=== PATIENT | female | born 1965 | race Caucasian/White ===

== ENCOUNTER 2021-10-19 08:37 | Emergency (ER) | payer MEDICAID, SELFPAY ==
[2021-10-19 08:41] VITALS: BP 108/69; PULSE 87; RESP 20; TEMP 37.1; O2SAT 97; BMI 26.2
--- NOTE | 2021-10-19 08:58 | EKG12_ITS ---
Test Reason : SUBSTANCE ABUSE Blood Pressure : / mmHG Vent. Rate : 078 BPM Atrial Rate : 078 BPM P-R Int : 150 ms QRS Dur : 076 ms QT Int : 368 ms P-R-T Axes : 074 072 076 degrees QTc Int : 419 ms Normal sinus rhythm Biatrial enlargement Abnormal ECG Confirmed by JAKOB PABLO, VERO ([id number]), legal editor MURIEL NAGY ([id number]) on 10/24/2021 9:31:25 AM Referred By: RM Confirmed By:VERO ROBERT MD
--- NOTE | 2021-10-19 09:01 | EX.ED.DYSGE1 ---
HPI History of Present Illness Chief Complaint: Substance Abuse Informant: patient Onset/Context/Timing Onset: Days Context: Gradual Onset Current Severity: Moderate Maximum Severity: Moderate Narrative Narrative: Patient presents secondary to withdrawal from cocaine and gabapentin. She is currently at [facility]. She had been using cocaine and gabapentin daily for the last 6 months. She was sent to the emergency room from [facility] for inpatient treatment. [facility] Medical History Anxiety Depression Substance abuse Home Medications aripiprazole 10 mg PO DAILY 10/19/21 [History Last Taken Unknown] fluoxetine [Prozac] 20 mg PO DAILY 10/19/21 [History Last Taken Unknown] hydroxyzine pamoate 25 mg PO TID PRN PRN 10/19/21 [History Last Taken Unknown] methocarbamol [Robaxin] 750 mg PO QHS 10/19/21 [History Last Taken Unknown] topiramate 25 mg PO BID 10/19/21 [History Last Taken Unknown] Allergy/AdvReac Type Severity Reaction Status Date / Time No Known Allergies Allergy Verified 10/19/21 08:49 Surgical History History of hysterectomy Social History Smoking Status: Current every day smoker tobacco type: cigarettes ROS ROS ED Constitutional Constitutional ED: Reports chills Eyes Eyes: Denies blurry vision or change in vision ENT ENT ED: Denies rhinorrhea or sore throat Cardiovascular Cardiovascular: Denies chest pain Respiratory/Chest Respiratory/Chest: Denies cough or dyspnea Gastrointestinal Gastrointestinal: Reports nausea Genitourinary Genitourinary ED: Denies dysuria Musculoskeletal Musculoskeletal: Reports myalgias Integumentary Denies rash Neurologic Neurologic: Reports headache(s) and weakness Psychiatric Psychiatric: Reports anxiety Endocrine Endocrinology: Denies polydipsia or polyuria Allergic/Immunologic Allergic/Immunologic ED: Denies urticaria EXAM Physical Exam Const Vital Signs: 10/19/21 08:41 10/19/21 09:41 10/19/21 10:21 Temperature 98.8 F Temperature Source Oral Pulse Rate 87 76 88 Respiratory Rate 20 H 16 25 H Blood Pressure 108/69 115/76 Blood Pressure Mean 82 89 Pulse Ox 97 98 98 Oxygen Delivery Method Room Air Room Air Room Air Positive well nourished and well developed General Appearance ED: well developed HEENT Reports moist mucous membranes Eyes PERRL and EOMs intact bilaterally Neck supple Chest Wall inspection of chest normal and palpation of chest normal Resp normal respiratory effort and clear to auscultation bilaterally Cardio regular rate and regular rhythm GI non-tender Palpation: soft Extremity normal to inspection Neuro oriented x3 Sensorium / Orientation: alert Psych mental status grossly normal MDM MDM MDM Narrative Medical decision making narrative: Patient placed on cell tender helper. EKG and labs obtained. Patient given 0.5 mg of IV Ativan. Lab Data Attestation: I reviewed the patient's lab results. Labs: Laboratory Results - last 24 hr 10/19/21 10/19/21 10/19/21 09:35 09:35 09:35 WBC 4.8 RBC 4.80 Hgb 15.4 H Hct 44.1 MCV 91.9 MCH 32.1 H MCHC 34.9 RDW Std Deviation 43.6 RDW Coeff of Seven 12.9 Plt Count 241 MPV 10.3 Immature Gran % (Auto) 0.200 Neut % (Auto) 77.5 H Lymph % (Auto) 12.2 L [place] % (Auto) 9.5 Eos % (Auto) 0.2 Baso % (Auto) 0.4 Absolute Neuts (auto) 3.8 Absolute Lymphs (auto) 0.59 L Nucleated RBC % 0 Differential Comment Platelet Estimate ADEQUATE RBC Morphology NORM C+C Sodium 138 Potassium 4.0 Chloride 108 H Carbon Dioxide 26.0 Anion Gap 4 L BUN 16 Creatinine 0.93 Estim Creat Clear Calc 60.06 Est GFR (MDRD) Af Amer 80 Est GFR (MDRD) Non-Af 66 BUN/Creatinine Ratio 17.3 Glucose 104 Calcium 8.7 Total Bilirubin 0.20 Direct Bilirubin 0.07 AST 14 L ALT 23 Alkaline Phosphatase 78 Total Protein 7.5 Albumin 3.2 Globulin 4.3 H Urine Opiates Screen Urine Methadone Screen Ur Barbiturates Screen Ur Phencyclidine Scrn Ur Amphetamines Screen U Methamphetamin-MDMA U Benzodiazepines Scrn Urine Cocaine Screen U Cannabinoids Screen Ur Drug Screen Comment Ethyl Alcohol < 3.0 10/19/21 09:35 WBC RBC Hgb Hct MCV MCH MCHC RDW Std Deviation RDW Coeff of Seven Plt Count MPV Immature Gran % (Auto) Neut % (Auto) Lymph % (Auto) [place] % (Auto) Eos % (Auto) Baso % (Auto) Absolute Neuts (auto) Absolute Lymphs (auto) Nucleated RBC % Differential Comment Platelet Estimate RBC Morphology Sodium Potassium Chloride Carbon Dioxide Anion Gap BUN Creatinine Estim Creat Clear Calc Est GFR (MDRD) Af Amer Est GFR (MDRD) Non-Af BUN/Creatinine Ratio Glucose Calcium Total Bilirubin Direct Bilirubin AST ALT Alkaline Phosphatase Total Protein Albumin Globulin Urine Opiates Screen NEGATIVE Urine Methadone Screen NEGATIVE Ur Barbiturates Screen NEGATIVE Ur Phencyclidine Scrn NEGATIVE Ur Amphetamines Screen NEGATIVE U Methamphetamin-MDMA NEGATIVE U Benzodiazepines Scrn NEGATIVE Urine Cocaine Screen POSITIVE H U Cannabinoids Screen NEGATIVE Ur Drug Screen Comment Ethyl Alcohol EKG Initial EKG: Attestation: I personally reviewed and interpreted this EKG as follows: Interpretation: Sinus Rhythm (Sinus at 78 with no acute ischemia.) Treatment and Re-Evaluation Comments:: On repeat evaluation patient resting comfortably. I spoke with social work. They made phone calls to [facility]. Apparently there was a misunderstanding as [facility] says they can care for this at their facility, she does not need to be an inpatient. She will be discharged in [facility] will come pick her up to continue her treatment. Discharge Plan Triage Chief Complaint: Substance Abuse ED Provider: Martha Loera Dx/Rx/DC Orders Clinical Impression: Substance abuse Instructions: Addiction: Getting Help, Recovering from Addiction Prescriptions: No Action topiramate 25 mg tablet 25 mg PO BID RF: 0 methocarbamol [Robaxin] 750 mg Tablet 750 mg PO QHS RF: 0 fluoxetine [Prozac] 20 mg Capsule 20 mg PO DAILY RF: 0 hydroxyzine pamoate 25 mg capsule 25 mg PO TID PRN PRN (Reason: Anxiety) RF: 0 aripiprazole 5 mg tablet 10 mg PO DAILY RF: 0 Primary Care Provider: Care Physician,No Primary Referrals: Care Physician,No Primary [Primary Care Provider] - [facility] [STAFF PHYSICIAN] - As soon as possible Disposition Disposition: Home, Self Care
[2021-10-19] MEDS: LORazepam 2 MG/ML Syringe 0.5 MG IV (09:28)
[2021-10-19] MEDS: 0.9% Normal Saline 1,000 ML 150 ML IV (09:30)
[2021-10-19 09:41] VITALS: BP 115/76; PULSE 76; RESP 16; O2SAT 98
[2021-10-19 09:49] LABS: Absolute Lymphocyte Count 0.59 X10^3/uL (0.83-4.51); Absolute Neutrophil Count 3.8 X10^3/uL (2.0-7.7); Basophil# 0.02 X10^3/uL; Basophil% 0.4 % (0-1); Eosinophil# 0.01 X10^3/uL; Eosinophils% 0.2 % (0-5); Hematocrit 44.1 % (37-47); Hemoglobin 15.4 g/dL (12.0-15.0); Lymphocyte # 0.59 X10^3/ul (0.83-4.51); Lymphocyte % 12.2 % (19-41); Mean Corp Hgb Conc 34.9 g/dL (32-36); Mean Corpuscular Hgb 32.1 pg (27.0-32.0); Mean Corpuscular Volume 91.9 fL (81-99); Mean Platelet Vol. 10.3 fl (6.2-12.0); Monocyte# 0.46 X10^3/uL; Monocyte% 9.5 % (0-10); NRBC Flagged by Analyzer 0 % (0-5); Neutrophil # 3.75 X10^3/uL (2.7-7.7); Neutrophil % 77.5 % (47-70); POSITIVE DIFFERENTIAL YES; Platelet Count 241 K/mm3 (150-450); RBC Distribution Width CV 12.9 % (11.6-14.6); RBC Distribution Width SD 43.6 fl (35.1-43.9); White Blood Count 4.8 K/mm3 (4.4-11.0)
[2021-10-19 09:55] LABS: Differential Indicated SCAN CRITERIA MET
[2021-10-19 10:00] LABS: Alcohol, Blood (Medical)-Serum < 3.0 mg/dL
[2021-10-19 10:02] LABS: AST(SGOT) 14 U/L (15-37); Alanine Aminotransfer ALT/SGPT 23 U/L (13-56); Albumin, Serum 3.2 g/dL (3.2-5.0); Alkaline Phosphatase 78 U/L (45-117); Anion Gap 4 (5-15); BUN 16 mg/dL (7-18); BUN/Creat Ratio 17.3 RATIO (10-20); Bilirubin, Direct 0.07 mg/dL (0.00-0.30); Calcium,Total 8.7 mg/dL (8.5-10.1); Chloride 108 mmol/L (98-107); Creatinine, Serum 0.93 mg/dL (0.55-1.02); EST Glomerular Filtration Rate 66 mL/min (>60); Est Glom Filt Rate - Afr Amer 80 mL/min (>60); Estimated Creatinine Clearance 60.06 ml/min; Globulin 4.3 g/dL (2.2-4.2); Glucose 104 mg/dL (74-106); Protein, Total 7.5 g/dL (6.4-8.2); Sodium Level 138 mmol/L (136-145)
[2021-10-19 10:11] LABS: Amphetamine Urine VISTA NEGATIVE (<1000 ng/mL); Barbiturate Urine VISTA NEGATIVE (< 200 ng/mL); Benzodiazepine Urine VISTA NEGATIVE (< 200 ng/mL); Cocaine Urine VISTA POSITIVE (< 300 ng/mL); Ecstacy Urine VISTA NEGATIVE (< 500 ng/mL); Methadone Urine VISTA NEGATIVE (< 300 ng/mL); PCP Urine VISTA NEGATIVE (< 25 ng/mL); THC Urine VISTA NEGATIVE (< 50 ng/mL); Vista UDS pH Range 6
[2021-10-19 10:21] VITALS: PULSE 88; RESP 25; O2SAT 98
[2021-10-19 10:27] LABS: Platelet Estimate ADEQUATE (ADEQ); Red Cell Morphology NORM C+C NORMAL (NORM C&C)
[2021-10-19 11:12] VITALS: BP 115/79; RESP 18; O2SAT 98
--- NOTE | 2021-10-19 12:20 | CM.ED ---
FLOYD Note Referral Source: MD Referral Reason: TISHA PABLO said that patient presents to the ED with use of gabapentin and cocaine, last use Saturday. FLOYD called [facility] and left voice mail. [facility] call this remote mortgage underwriter back. FLOYD advised that patient said she is from [facility]. [facility] will call for clarification. [facility] called back. [facility] stated that patient is in the residential treatment program. She said patient does not need detox as it has been since Saturday. She said that patient was being manipulative and they can't stop patient from calling EMS. [facility] said that unless patient has pain issues that require hospitalization then patient can be discharged and call someone from [facility] to bring her back to the program. FLOYD was updated by Melia that patient said that no one from [facility] will bring her back. FLOYD provided Melia with [facility]'s number. Melia advised that [facility] staff came and got patient to go back to [facility]. Plan: Return to [facility] HOPPER
== END 2021-10-19 11:49 | disposition home or self-care (01) ==
PROVIDERS: Emergency Provider Emergency Medicine
DX: F14.13 Cocaine abuse, unspecified with withdrawal (principal); F55.8 Abuse of other non-psychoactive substances; F32.A Depression, unspecified; F41.9 Anxiety disorder, unspecified; F17.210 Nicotine dependence, cigarettes, uncomplicated; Z79.899 Other long term (current) drug therapy
CPT/HCPCS: 80048; 80076; 80307; 82077; 85025; 93005; 96361; 96374; 99285; J7030